=== PATIENT | female | born 1935 | race Caucasian/White ===

== ENCOUNTER 2017-09-01 09:34 | Emergency (ER) | payer OTHER, MEDICARE ==
[~2017-09-01] VITALS: Ht 160 cm; Wt 83.5 kg
[2017-09-01 09:46] VITALS: Ht 160 cm; Wt 83.5 kg
[2017-09-01] MEDS ORDERED: ISOS30TA3 PO (10:00)
[2017-09-01] MEDS ORDERED: CHOL1000 PO (10:00)
[2017-09-01] MEDS ORDERED: METO25TA56 PO (10:00)
[2017-09-01] MEDS ORDERED: THIA100T11 PO (10:00)
[2017-09-01] MEDS ORDERED: MULT-506 PO (10:00)
[2017-09-01] MEDS ORDERED: SIMV80TA2 PO (10:00)
[2017-09-01] MEDS ORDERED: ASPI81TA28 PO (10:00)
[2017-09-01] MEDS ORDERED: MIRT15TA PO (10:00)
[2017-09-01] MEDS ORDERED: HYZ/10015 PO (10:00)
[2017-09-01] MEDS ORDERED: CLOP1TAB15 PO (10:00)
[2017-09-01] MEDS ORDERED: METF500T PO (10:00)
[2017-09-01] MEDS ORDERED: PANT40TA PO (10:00)
--- NOTE | 2017-09-01 10:24 | EMERGENCY ROOM VISIT NOTE ---
ED Visit Note First contact with patient: 09:51 I have personally seen and evaluated the patient with the physician licensed occupational therapy assistant. I agree with the diagnostic/management decisions and have personally been involved in these decisions and agree with the diagnosis.
[2017-09-01 10:28] LABS: BASO % 0.3 %; BASO ABS # 0.02 K/uL (0-0.2); EOS % 2.2 %; EOS ABS # 0.13 K/uL (0-0.5); HEMATOCRIT 36.1 % (37-47); HEMOGLOBIN 12.6 g/dL (12.0-16.0); IG# 0.01 K/uL (0.00-0.02); LYMPH % 24.5 %; LYMPH ABS # 1.42 K/uL (1.2-3.4); MEAN CELL VOLUME 85.1 fL (80-100); MEAN CORPUSCULAR HEMOGLOBIN 29.7 pg (25-34); MEAN CORPUSCULAR HGB CONC 34.9 g/dl (32-36); MEAN PLATELET VOLUME 9.2 fL (7.4-10.4); MONO % 4.8 %; MONO ABS # 0.28 K/uL (0.11-0.59); NEUT ABS # 3.93 K/uL (1.4-6.5); PLATELET COUNT 206 K/uL (130-400); RED CELL DISTRIBUTION WIDTH CV 13.5 % (11.5-14.5); WHITE BLOOD COUNT 5.79 K/uL (4.8-10.8)
[2017-09-01 10:43] LABS: BLOOD UREA NITROGEN 25 mg/dl (7-18); CALCIUM 9.2 mg/dl (8.5-10.1); CARBON DIOXIDE 29 mmol/L (21-32); GLUCOSE 183 mg/dl (70-99); POTASSIUM 4.5 mmol/L (3.5-5.1); SODIUM 136 mmol/L (136-145)
[2017-09-01 10:53] LABS: CKMB 1.1 ng/ml (0.5-3.6)
[2017-09-01 11:54] VITALS: BP 144/67; PULSE 62; TEMP 36.7; O2SAT 96
--- NOTE | 2017-09-02 08:01 | EMERGENCY ROOM VISIT NOTE ---
History First contact with patient: 09:51 Chief Complaint: OTHER COMPLAINT Stated Complaint: DIZZINESS/NAUSEA/SHAKING History of Present Illness The patient is a 82 year old white female who presents to the Emergency Room with complaints of dizziness and nausea that occurred earlier today. Patient was here at a swim meet for her grandson. She was high in the bleachers. She states she became very warm and walked down to the lower level for cooler air. She sat down and became lightheaded. She thought she was going to pass out. She did not. She did become nauseated and had multiple dry heaves. She then developed a short period of shaking. The episode passed and she felt better. Because of her symptoms, EMS was called and she was brought to the ED. She currently denies any discomfort. Her children accompany her today. She denies any chest pain, shortness of breath, or abdominal pain. She states she did eat a normal breakfast this morning. She denies any cold symptoms. No other complaints. Review of Systems REVIEW OF SYSTEM: HEENT: No dizziness, visual problems, hearing loss, or tinnitus. There is no difficulty swallowing and no oral lesions are present. LYMPH: No adenopathy. PULMONARY: No cough, shortness of breath, sputum production or hemoptysis. CARDIOVASCULAR: No chest pain, palpitations, shortness of breath or peripheral edema. GASTROINTESTINAL: No diarrhea, constipation, or abdominal pain. GENITOURINARY: No dysuria, frequency, urgency or nocturia. NEUROLOGIC: No weakness, muscle tenderness, epilepsy or history of neurological problems. MUSCULOSKELETAL: No history of joint tenderness/swelling. Positive history of arthritis and arthralgias. SKIN: No rashes or lesions. PSYCHIATRIC: No history of depression or mental illness. ENDOCRINE: No history of thyroid disorders, or abnormal hair growth. Past Medical/Surgical History Previous surgeries: None Medical history: Diabetes, hypertension, heart disease, GERD Family History Noncontributory. Parents are . Social History Smoking Status: Never Smoker Smokeless Tobacco Use: No Alcohol Use: none Drug Use: none Marital Status: Housing Status: lives with family Occupation Status: retired Current/Historical Medications Scheduled Aspirin (Aspirin Ec), 81 MG PO DAILY Cholecalciferol (Vitamin D3), 1 TAB PO DAILY Clopidogrel (Plavix), 75 MG PO DAILY Hctz/Losartan (Hyzaar 25MG/100MG), 1 TAB PO DAILY Isosorbide Mononitrate Ext Rel (Imdur Ext Rel), 30 MG PO DAILY Metformin Hcl (Glucophage), 500 MG PO BID Metoprolol Tartrate (Lopressor) (Lopressor), 25 MG PO BID Mirtazapine (Remeron), 15 MG PO HS Multivitamin (Multivitamin), 1 TAB PO DAILY Pantoprazole (Protonix), 40 MG PO DAILY Simvastatin (Zocor), 80 MG PO DAILY Thiamine Hcl (Vitamin B-1), 100 MG PO DAILY Physical Exam Vital Signs Date Time Temp Pulse Resp B/P (MAP) Pulse Ox O2 Delivery O2 Flow Rate FiO2 09/01/17 11:54 36.7 62 16 144/67 96 09/01/17 10:42 62 09/01/17 09:46 36.7 66 18 167/83 99 Room Air Physical Exam General: Well-developed, well-nourished, elderly white female, in no acute distress. Laying on the bed. Alert and oriented. Skin: Warm and dry with fair turgor. No rashes or lesions. No ecchymosis or erythema. The patient is not diaphoretic. No abrasions. HEENT: Normocephalic atraumatic. Eyes PERRLA, EOMI. she is wearing glasses. No conjunctiva or scleral injection. Ears TMs intact bilaterally with good light reflexes. No erythema or bulging. No hemotympanum. Canals are patent. Nares patent bilaterally without turbinate enlargement. No significant drainage. No epistaxis. Oropharynx without erythema or exudate. Uvula midline , oral mucosa moist. No lesions present. Heart: Heart RRR. No MGR. Peripheral pulses are 2+. Lungs: Lungs are clear to auscultation. No crackles rhonchi or wheezing. Good air movement. The patient is able to take a deep breath. Abdomen: Abdomen was inspected, auscultated, and palpated. Obese. Bowel sounds present x 4. Soft, nontender to palpation. No hepato-splenomegaly. No masses noted. Musculoskeletal: Gross motor function of the upper and lower extremities is intact and unremarkable. Medical Decision & Procedures ER Provider Diagnostic Interpretation: EKG obtained today shows a normal sinus rhythm with a rate of 66. No acute ST or T-wave changes. This was interpreted by me and reviewed with Dr. Ledbetter. Laboratory Results 09/01/17 10:15 Red Blood Count 4.24, Mean Corpuscular Volume 85.1, Mean Corpuscular Hemoglobin 29.7, Mean Corpuscular Hemoglobin Concent 34.9, Mean Platelet Volume 9.2, Neutrophils (%) (Auto) 68.0, Lymphocytes (%) (Auto) 24.5, Monocytes (%) (Auto) 4.8, Eosinophils (%) (Auto) 2.2, Basophils (%) (Auto) 0.3, Neutrophils # (Auto) 3.93, Lymphocytes # (Auto) 1.42, Monocytes # (Auto) 0.28, Eosinophils # (Auto) 0.13, Basophils # (Auto) 0.02 09/01/17 10:15 Test 09/01/17 10:15 White Blood Count 5.79 K/uL (4.8-10.8) Red Blood Count 4.24 M/uL (4.2-5.4) Hemoglobin 12.6 g/dL (12.0-16.0) Hematocrit 36.1 % (37-47) Mean Corpuscular Volume 85.1 fL (80-100) Mean Corpuscular Hemoglobin 29.7 pg (25-34) Mean Corpuscular Hemoglobin Concent 34.9 g/dl (32-36) Platelet Count 206 K/uL (130-400) Mean Platelet Volume 9.2 fL (7.4-10.4) Neutrophils (%) (Auto) 68.0 % Lymphocytes (%) (Auto) 24.5 % Monocytes (%) (Auto) 4.8 % Eosinophils (%) (Auto) 2.2 % Basophils (%) (Auto) 0.3 % Neutrophils # (Auto) 3.93 K/uL (1.4-6.5) Lymphocytes # (Auto) 1.42 K/uL (1.2-3.4) Monocytes # (Auto) 0.28 K/uL (0.11-0.59) Eosinophils # (Auto) 0.13 K/uL (0-0.5) Basophils # (Auto) 0.02 K/uL (0-0.2) RDW Standard Deviation 42.0 fL (36.4-46.3) RDW Coefficient of Variation 13.5 % (11.5-14.5) Immature Granulocyte % (Auto) 0.2 % Immature Granulocyte # (Auto) 0.01 K/uL (0.00-0.02) Anion Gap 8.0 mmol/L (3-11) Est Creatinine Clear Calc Drug Dose 43.6 ml/min Estimated GFR () 60.3 Estimated GFR (Non- 52.1 BUN/Creatinine Ratio 25.1 (10-20) Calcium Level 9.2 mg/dl (8.5-10.1) Total Creatine Kinase 78 U/L (26-192) Creatine Kinase MB 1.1 ng/ml (0.5-3.6) Creatine Kinase MB Ratio 1.4 (0-3.0) Troponin I < 0.015 ng/ml (0-0.045) Thyroid Stimulating Hormone (TSH) 2.000 uIu/ml (0.300-4.500) CBC, PRP, TSH, CK/CK-MB, and troponin were obtained. They are all unremarkable. ED Course Patient and her family were educated regarding today's findings. Conservative care measures were discussed. IV was established. Labs were obtained. EKG was obtained. Patient remained stable while in the ED. She felt well enough for discharge. I did recommend that she maintain her hydration level and rest as needed. Avoid warm or hot environments. She does intend to return to this with me. I did ask that she sit in a cool area or remove her jacket and sweater. Return to the ED for any other concerns. Follow-up with her PCP as needed. Patient was seen in conjunction with Dr. Ledbetter, who also evaluated the patient and concurred with today's diagnosis and treatment plan. Medical Decision Possibility of hyperglycemia, hypoglycemia, ACS, dehydration, electrolyte imbalance, hypothyroidism, arrhythmia, and vasovagal episode were considered. Medication Reconcilliation Current Medication List: was personally reviewed by me Blood Pressure Screening Blood pressure disposition: Elevated BP felt to be situational Impression Primary Impression: Near syncope Departure Information Referrals No Doctor, Assigned (PCP) [facility] Instructions [facility]
== END 2017-09-01 11:55 | disposition home or self-care (01) ==
LOC: C.EDB 09:38
DX: R55 Syncope and collapse (principal); M19.90 Unspecified osteoarthritis, unspecified site; E11.9 Type 2 diabetes mellitus without complications; I10 Essential (primary) hypertension; K21.9 Gastro-esophageal reflux disease without esophagitis; Z79.82 Long term (current) use of aspirin; Z79.84 Long term (current) use of oral hypoglycemic drugs; Z79.02 Long term (current) use of antithrombotics/antiplatelets; E66.9 Obesity, unspecified